=== PATIENT | female | born 1965 | race African-American/Black ===

== ENCOUNTER 2017-10-24 22:08 | Inpatient (IN) | payer MEDICARE, MEDICAID ==
[2017-10-24 22:33] LABS: #Eosinphils 0.1 thou/uL (0.0-0.7); #Lymphocytes 1.8 thou/uL (1.20-3.40); #Monocytes 0.5 thou/uL (0.11-0.59); #Neutrophils 5.9 thou/uL (1.40-6.50); %Eosinophils 0.9 % (0.0-10.0); %Lymphocytes 22.2 % (21.0-51.0); %Monocytes 5.7 % (0.0-10.0); %Neutrophils 71.1 % (42.0-75.0); Hemoglobin 13.7 g/dL (12.0-16.0); Mean Corpuscular HGB CONC 31.7 g/dL (32.0-36.0); Mean Corpuscular Hemoglobin 29.1 pg (27.0-31.0); Mean Corpuscular Volume 91.9 fl (81.0-99.0); Mean Platelet Volume 8.9 fL (7.4-10.4); Platelet Count 131 thou/uL (130-400); RBC Distribution Width 13.3 % (11.5-14.5); Red Blood Cell (RBC) Count 4.73 mill/uL (4.20-5.40); White Blood Cell (WBC) Count 8.3 thou/uL (4.8-10.8)
[2017-10-24 22:56] LABS: ALT (SGPT) 38 U/L (8-55); AST (SGOT) 49 U/L (5-34); Albumin 3.4 g/dL (3.5-5.0); Alkaline Phosphatase 127 U/L (40-150); Anion Gap 13 mmol/L (10-20); BUN (Urea Nitrogen) 16 mg/dL (9.8-20.1); Bilirubin, Total 0.5 mg/dL (0.2-1.2); Calc. Creatinine Clearance 0 mL/min (70-130); Calcium 8.7 mg/dL (7.8-10.44); Carbon Dioxide 24 mmol/L (22-29); Chloride 104 mmol/L (98-107); Estimated GFR-MDRD 77; Globulin 4.6 g/dL (2.4-3.5); Glucose 228 mg/dL (70-105); Potassium 4.2 mmol/L (3.5-5.1); Sodium 137 mmol/L (136-145)
[2017-10-24 22:59] LABS: CKMB 2.4 ng/mL (0-6.6); Troponin I 0.016 ng/mL (< 0.028)
[2017-10-24] MEDS ORDERED: Furosemide 40 MG/4 ML VIAL ONE (23:37)
--- NOTE | 2017-10-24 23:41 | RAD ---
PORTABLE AP CHEST X-RAY: 10/24/2017 HISTORY: Difficulty breathing. The patient on CPAP. COMPARISON: 09/06/2016 FINDINGS: The cardiac silhouette is magnified by projection. Pulmonary vasculature is within normal limits. L ungs are clear. There is mild increase in left perihilar interstitial densities, and to a lesser ext ent, on the right. No consolidation or pleural fluid is seen. Vascular calcification at the thoraci c aorta. No other interval change. IMPRESSION: Mildly increased perihilar interstitial densities predominantly on the left. This is nonspecific and may be attributable to mild pulmonary edema or developing infectious process. Short-term follow-up exam is recommended. POS: ITZEL
[2017-10-25 00:36] LABS: Amphetamine Not Detected (NotDetected); Barbiturates Screen Not Detected (NotDetected); Benzodiazepine Screen Not Detected (NotDetected); Cocaine Metabolite Screen Detected (NotDetected); Medtox Control Line Valid? VALID (VALID); Medtox Reader # READER 4; Methadone Not Detected (NotDetected); Methamphetamine Not Detected (NotDetected); Opiate Screen Not Detected (NotDetected); Oxycodone Screen Not Detected (NotDetected); Phencyclidine (PCP) Not Detected (NotDetected); THC/Cannabinoid Screen Not Detected (NotDetected); Tricyclic Screen Not Detected (NotDetected)
[2017-10-25] MEDS ORDERED: Albuterol Sulfate 2.5 mg/0.5 ml Neb ONE (00:48)
[2017-10-25 04:12] VITALS: BMI 33.5
[2017-10-25] MEDS ORDERED: Dextrose 50% Abboject 50 ML SYRINGE IVP PRN (10:15)
[2017-10-25] MEDS ORDERED: Dextrose 5% in Water 1,000 ML IV PRN (10:15)
[2017-10-25] MEDS: Acetaminophen 325 MG TAB PO PRN ×2 (10:53→17:37)
[2017-10-25] MEDS: traMADol HCl 50 MG TAB PO PRN ×2 (10:53→17:16)
[2017-10-25] MEDS: Insulin Regular 300 UNITS/3 ML VIAL SC PRN ×3 (13:02→22:22)
[2017-10-25] MEDS ORDERED: Furosemide 40 MG/4 ML VIAL SLOW IVP SCH (15:15)
--- NOTE | 2017-10-25 15:38 | EKG ---
Test Reason : Blood Pressure : / mmHG Vent. Rate : 097 BPM Atrial Rate : 097 BPM P-R Int : 128 ms QRS Dur : 084 ms QT Int : 378 ms P-R-T Axes : 031 051 037 degrees QTc Int : 480 ms Sinus rhythm with Premature atrial complexes Minimal voltage criteria for LVH, may be normal variant Prolonged QT Abnormal ECG Confirmed by JONATHAN KAN, JUSTICE Mccain ([id number]), online content editor WALTER NAGY ([id number]) on 10/25/2017 3:38:24 PM Referred By: Confirmed By:JUSTICE CASTILLO MD
[2017-10-25] MEDS: metFORMIN 500 MG TAB PO SCH (17:15)
[2017-10-25] MEDS: Mometasone/Formoterol 120 PUFF INHALER INH SCH (18:48)
[2017-10-25] MEDS: Gabapentin 300 MG CAP PO SCH (19:50)
[2017-10-25] MEDS: guaiFENesin ER 600 MG TAB PO SCH (19:50)
[2017-10-26] MEDS: traMADol HCl 50 MG TAB PO PRN ×4 (00:03→20:44)
--- NOTE | 2017-10-26 01:45 | HP ---
DATE OF ADMISSION: 10/25/2017 REASON AND CHIEF COMPLAINT: Shortness of breath and hypoxia. HISTORY OF PRESENT ILLNESS: Ms. Shaikh is a 52-year-old female with past medical hi story of hypertension, diabetes mellitus and COPD, came because of shortness of breath and cough. Sh ortness of breath started just an hour before she came to the hospital and got worse to the point she could not breathe. She took some breathing treatment, but still it did not improve, so EMS was call ed. EMS found the patient with chest wheezing, with O2 saturation 81%. The patient was given DuoNeb s and oxygen on the way to the hospital and saturation improved more than 90%, but patient was still having hard time breathing, so she was put on CPAP. She was given also ketamine. She received a tot al of DuoNeb treatments, Solu-Medrol [address] to hospital. In the ER, the patient wa s found to have possible CHF as well, and she received a dose of Lasix and given nebulizer treatment as well and admitted for further evaluation. Currently, the patient feels slightly better than befor e. The patient was also found to be positive for cocaine. PAST MEDICAL HISTORY: 1. Hypertension. 2. Diabetes mellitus. 3. COPD. 4. Hyperlipidemia. 5. History of left hip septic arthritis. 6. History of chronic back pain. 7. Chronic anemia. PAST SURGICAL HISTORY: Status post cholecystectomy, status post hysterectomy and status post debride ment to left hip. CURRENT MEDICATIONS: The patient is supposed to be on Tylenol p.r.n., gabapentin 300 mg 2 tablets at bedtime, Symbicort 160/4.5 two puffs b.i.d., amlodipine 10 mg daily, metformin 1000 b.i.d., Cozaar 1 00 mg daily, Lasix 20 mg daily, Nexium 40 mg daily, Celexa 20 mg daily and also on DuoNeb treatments q.i.d. ALLERGIES: IODINE. FAMILY HISTORY: Nothing of interest. SOCIAL HISTORY: The patient lives with family. No history of alcohol intake, no history of smoking. She abuses cocaine. REVIEW OF SYSTEMS: Cardiovascular: No chest pain. Has shortness of breath. Respiratory: Has coug h. No fever. Gastrointestinal: No nausea, no vomiting, no abdominal pain. Genitourinary: No dist ension. Central Nervous System: No headache, no dizziness. PHYSICAL EXAMINATION: GENERAL: The patient is alert, awake and oriented x3. VITAL SIGNS: Temperature 98, pulse 84, respirations 20, blood pressure 140/80 and O2 sat 92%. HEENT: Head is normocephalic and atraumatic. Pupils are equal and reactive. Nasopharynx is pale an d moist. NECK: Supple. No JVD. LUNGS: Breath sounds diminished bilaterally. Percussion dull bilaterally. Expiratory wheeze presen t. Rales present in both bases. HEART: S1 and S2 regular. ABDOMEN: Soft. No distention, no tenderness. Normal bowel sounds present. RECTAL: Deferred. CENTRAL NERVOUS SYSTEM: No focal deficits. LABORATORY AND X-RAY FINDINGS: CBC shows WBC 8.3, hemoglobin 14, hematocrit 43 and platelets 131. M etabolic panel: Sodium 137, potassium 4.2, chloride 104, CO2 of 25, urea nitrogen 16, creatinine 0.9 and glucose 228. CK-MB 2.4, troponin I 0.016 and BNP was 203. EKG shows normal sinus rhythm. No a cute ST-T changes. Chest x-ray showed possible mild pulmonary edema or possible developing infectiou s process. ASSESSMENT: 1. Chronic obstructive pulmonary disease, acute exacerbation. 2. Congestive heart failure, acute exacerbation, rule out myocardial infarction. 3. Cocaine abuse. 4. Hypoxia secondary to #1. 5. Hypertension. 6. Diabetes mellitus. 7. Chronic anemia. PLAN: 1. Vital signs q.4 hours. 2. Activity: As tolerated. 3. Allergies: IODINE. 4. Diet: ADA. 5. Lasix 40 IVP daily. 6. DuoNebs q.i.d. 7. Solu-Medrol 20 IVP q.6 hours. 8. Levaquin 750 daily IV piggyback. 9. Accu-Chek a.c. and at bedtime. 10. Sliding scale mild with regular insulin. 11. Continue home medication. 12. Echocardiogram.
[2017-10-26 05:28] LABS: Anion Gap 14 mmol/L (10-20); BUN (Urea Nitrogen) 24 mg/dL (9.8-20.1); Calc. Creatinine Clearance 80 mL/min (70-130); Calcium 9.6 mg/dL (7.8-10.44); Carbon Dioxide 25 mmol/L (22-29); Chloride 94 mmol/L (98-107); Estimated GFR-MDRD 56; Glucose 258 mg/dL (70-105); Potassium 4.9 mmol/L (3.5-5.1); Sodium 128 mmol/L (136-145)
[2017-10-26] MEDS: Insulin Regular 300 UNITS/3 ML VIAL SC PRN ×2 (06:02→15:19)
[2017-10-26] MEDS: Mometasone/Formoterol 120 PUFF INHALER INH SCH ×2 (06:36→18:28)
[2017-10-26] MEDS: Citalopram 20 MG TAB PO SCH (08:03)
[2017-10-26] MEDS: guaiFENesin ER 600 MG TAB PO SCH ×2 (08:03→20:44)
[2017-10-26] MEDS: metFORMIN 500 MG TAB PO SCH ×2 (08:03→17:34)
[2017-10-26] MEDS: Amlodipine 10 MG TAB PO SCH (08:04)
[2017-10-26] MEDS: Losartan 25 MG TAB PO SCH (08:05)
[2017-10-26] MEDS ORDERED: Furosemide 20 MG TAB PO SCH (09:00)
[2017-10-26] MEDS ORDERED: Furosemide 40 MG/4 ML VIAL SLOW IVP SCH (09:00)
[2017-10-26] MEDS: Gabapentin 300 MG CAP PO SCH (20:44)
[2017-10-26] MEDS: Guaifenesin DM 100-10/5 ML UDCUP PO PRN (22:10)
[2017-10-27] MEDS: Guaifenesin DM 100-10/5 ML UDCUP PO PRN ×4 (03:13→20:58)
[2017-10-27] MEDS: traMADol HCl 50 MG TAB PO PRN (05:17)
[2017-10-27] MEDS: Insulin Regular 300 UNITS/3 ML VIAL SC PRN ×4 (05:18→21:01)
[2017-10-27] MEDS: Mometasone/Formoterol 120 PUFF INHALER INH SCH ×2 (07:14→18:26)
[2017-10-27] MEDS: metFORMIN 500 MG TAB PO SCH ×2 (08:10→16:48)
[2017-10-27] MEDS: Amlodipine 10 MG TAB PO SCH (08:11)
[2017-10-27] MEDS: guaiFENesin ER 600 MG TAB PO SCH ×2 (08:11→20:58)
[2017-10-27] MEDS: Furosemide 20 MG TAB PO SCH (08:11)
[2017-10-27] MEDS: Losartan 25 MG TAB PO SCH (08:11)
[2017-10-27] MEDS: Citalopram 20 MG TAB PO SCH (08:11)
--- NOTE | 2017-10-27 14:35 | PQF ---
CLINICAL DOCUMENTATION IMPROVEMENT CLARIFICATION FORM: ICD-10 Updated PLEASE DO AN ADDENDUM TO THE PROGRESS NOTE WITH ANY DOCUMENTATION UPDATES OR ADDITIONS AND CARRY THROUGH TO DC SUMMARY. THANK YOU. DATE: 10/27/17 ATTN: DR. ARNDT Please exercise your independent, professional judgment in responding to the clarification form. Clinical indicators are provided on the bottom of this form for your review Please check appropriate box(s): [ ] Acute Respiratory Failure: [ ] with Hypoxia[ ] with Hypercapnia [ y] Acute On Chronic Respiratory Failure: [ y] with Hypoxia [ ] with Hypercapnia [ ] Acute Respiratory Failure due to: (etiology) [ ] Acute Respiratory Insufficiency following (if applicable): [ ] trauma [ ] surgery [ ] Chronic Respiratory Failure only [ ] with Hypoxia [ ] with Hypercapnia [ ] Hypoxia [ ] Other diagnosis [ ] Unable to determine In addition, please specify: Present on Admission (POA): [ ] Yes [ ] No [ ] Unable to determine For continuity of documentation, please document condition throughout progress notes and discharge summary. Thank You. CLINICAL INDICATORS - SIGNS / SYMPTOMS / LABS H&P: "SHORTNESS OF BREATH STARTED JUST AN HOUR BEFORE SHE CAME TO THE HOSPITAL AND GOT WORSE TO THE POINT SHE COULD NOT BREATHE." "EMS FOUND THE PATIENT WITH CHEST WHEEZING AND O2 SATURATION 81%" RR 36 RISKS: COPD EXACERBATION TREATMENT: NEB TREATMENTS (ER-PRESENT) SOLUMEDROL (ENROUTE PER EMS- PRESENT) [facility] (10/25-PRESENT) CPAP (This form is maintained as a part of the permanent medical record) 2014 [id number]. All Rights Reserved RAIZA [email or web address] Office: [phone] [facility]
[2017-10-27] MEDS: Gabapentin 300 MG CAP PO SCH ×3 (20:58→21:00)
[2017-10-28] MEDS: Insulin Regular 300 UNITS/3 ML VIAL SC PRN ×3 (06:25→16:55)
[2017-10-28] MEDS: Mometasone/Formoterol 120 PUFF INHALER INH SCH (06:52)
[2017-10-28] MEDS: Citalopram 20 MG TAB PO SCH (08:10)
[2017-10-28] MEDS: guaiFENesin ER 600 MG TAB PO SCH (08:10)
[2017-10-28] MEDS: metFORMIN 500 MG TAB PO SCH ×2 (08:10→16:54)
[2017-10-28] MEDS: Guaifenesin DM 100-10/5 ML UDCUP PO PRN (08:10)
[2017-10-28] MEDS: Amlodipine 10 MG TAB PO SCH (08:11)
[2017-10-28] MEDS: Furosemide 20 MG TAB PO SCH (08:11)
[2017-10-28] MEDS: Losartan 25 MG TAB PO SCH (08:11)
[2017-10-28 15:59] VITALS: BP 130/80; TEMP 97.8
[2017-10-29] MEDS ORDERED: predniSONE 20 MG TAB PO SCH (09:00)
--- NOTE | 2017-10-29 13:18 | DIS ---
DATE OF ADMISSION: 10/25/2017 DATE OF DISCHARGE: 10/28/2017 ADMITTING DIAGNOSES 1. Chronic obstructive pulmonary disease with acute exacerbation. 2. Congestive heart failure, acute exacerbation, rule out myocardial infarction. 3. Cocaine abuse. 4. Hypoxia secondary to #1. 5. Hypertension. 6. Diabetes mellitus. FINAL DIAGNOSES: 1. Chronic obstructive pulmonary disease exacerbation, improved. 2. Congestive heart failure exacerbation, improved. 3. Cocaine abuse. 4. Hypoxia, improved. 5. Hypertension. 6. Diabetes mellitus. 7. Chronic anemia. BRIEF SUMMARY OF HOSPITAL COURSE: Ms. Shaikh is a 52-year-old -Stateless female admitted because of shortness of breath. The patient was found to be in CHF exacerbation as well as COPD. The patient initially on CPAP, but later on changed to face mask and nasal cannula. The patient was continued on Solu- Medrol and Lasix IV. In the next couple of days, her shortness of breath improved and wheezing resolved. An echocardiogram was done, showed normal LV function with ejection fraction of 55%, left atrial dilatation, some mild diastolic dysfunction, but in view of improvement, the patient is being discharged home. At the time of discharge, she was stable. Her vital signs stable. Lungs clear. Heart sounds regular. Abdomen is soft, nontender. Bowel sounds present. DISCHARGE MEDICATIONS: Include amlodipine 10 mg daily, losartan 100 mg daily, Celexa 20 mg daily, Symbicort 160/4.5 two puffs b.i.d., metformin 1000 b.i.d., albuterol inhaler two puffs q.i.d., Lasix 20 mg daily, Nexium 40 mg daily, gabapentin 300 mg 1 capsule at bedtime, prednisone in tapering doses, DuoNebs q.i.d., Mucinex 600 b.i.d. for 10 days. FOLLOWUP: The patient will come for followup in 2 weeks. LUDA
== END 2017-10-28 18:15 | disposition home or self-care (01) | DRG 291 ==
LOC: ERS 22:08 → SURG A 10-25 01:20
PROVIDERS: ADMIT Internal Medicine; ATTEND Internal Medicine
PROC: 5A09357 Assistance with Respiratory Ventilation, Less than 24 Consecutive Hours, Continuous Positive Airway Pressure (ICD-10-PCS; principal; 2017-10-25)
DX: I11.0 Hypertensive heart disease with heart failure (principal); J96.01 Acute respiratory failure with hypoxia; J44.1 Chronic obstructive pulmonary disease with (acute) exacerbation; D64.9 Anemia, unspecified; E11.9 Type 2 diabetes mellitus without complications; E78.5 Hyperlipidemia, unspecified; I50.9 Heart failure, unspecified; F14.10 Cocaine abuse, uncomplicated; F17.210 Nicotine dependence, cigarettes, uncomplicated
CPT/HCPCS: 36415; 36416; 71045; 80048; 80053; 80306; 82553; 83880; 84484; 85025; 93005; 93306; 94640; 94760; 96374; J1815; J1940; J1956; J2920; J7611; J7620

== ENCOUNTER 2017-11-07 19:49 | Emergency (ER) | payer MEDICARE, OTHER ==
[~2017-11-07 19:49] MED LIST: EPINEPHrine 1 MG/10 ML Abboject SYRINGE ONE; Sodium Bicarb 50 MEQ/50 ML Abboject 8.4% SYRINGE ONE
[2017-11-07] MEDS ORDERED: EPINEPHrine 1 MG, Admixture Fee 1 EACH in Dextrose 5% in Water 250 ML IVPB SCH ×3 (20:00)
[2017-11-07 20:14] LABS: Hemoglobin 11.8 g/dL (12.0-16.0); Mean Corpuscular HGB CONC 29.6 g/dL (32.0-36.0); Mean Corpuscular Hemoglobin 29.4 pg (27.0-31.0); Mean Corpuscular Volume 99.2 fl (81.0-99.0); RBC Distribution Width 13.4 % (11.5-14.5); Red Blood Cell (RBC) Count 4.01 mill/uL (4.20-5.40); White Blood Cell (WBC) Count 12.8 thou/uL (4.8-10.8)
[2017-11-07 20:22] LABS: Bicarbonate (HCO3v) 21.3 mmol/L (1.0-85.0); CO2 Tension (PvCO2) 99.5 mmHg (41.0-51.0); Calcium, Ionized 1.08 mmol/L (1.12-1.32); Hemoglobin - Calc 13.8 g/dL (12.0-18.0); Lactate 8.01 mmol/L (0.50-2.20); O2 Tension (PvO2) 59.4 mmHg (35.0-45.0); Potassium 5.2 mmol/L (3.4-4.7); T. Carbon Dioxide 24.4 mmol/L (1.0-85.0); pH (Venous) 6.939 (7.35-7.45); vO2 Saturation-calc 69.1 % (94-98)
[2017-11-07 20:32] LABS: #Basophils 0.1 thou/uL (0.0-0.2); #Eosinphils 0.1 thou/uL (0.0-0.7); #Monocytes 0.8 thou/uL (0.11-0.59); #Neutrophils 5.8 thou/uL (1.40-6.50); %Basophils 1.1 % (0.0-1.0); %Eosinophils 0.8 % (0.0-10.0); %Lymphocytes 46.5 % (21.0-51.0); %Monocytes 6.5 % (0.0-10.0); %Neutrophils 45.1 % (42.0-75.0); Hypochromia SLIGHT = 6-15 cells (100X) (0-5/hpf); MDiff Complete? YES; Mean Platelet Volume 10.5 fL (7.4-10.4); PLT Morphology Comment Appears Decreased; Platelet Count 88 thou/uL (130-400)
[2017-11-07 20:33] LABS: ALT (SGPT) 57 U/L (8-55); AST (SGOT) 72 U/L (5-34); Albumin 2.5 g/dL (3.5-5.0); Alkaline Phosphatase 109 U/L (40-150); Anion Gap 25 mmol/L (10-20); BUN (Urea Nitrogen) 15 mg/dL (9.8-20.1); Bilirubin, Total 0.3 mg/dL (0.2-1.2); CK (CPK) 123 U/L (29-168); Calc. Creatinine Clearance 0 mL/min (70-130); Calcium 8.2 mg/dL (7.8-10.44); Carbon Dioxide 14 mmol/L (22-29); Chloride 106 mmol/L (98-107); Estimated GFR-MDRD 38; Globulin 3.1 g/dL (2.4-3.5); Glucose 411 mg/dL (70-105); Lipase 81 U/L (8-78); Magnesium 2.5 mg/dL (1.6-2.6); Potassium 4.5 mmol/L (3.5-5.1); Protein, Total 5.6 g/dL (6.0-8.3); Sodium 140 mmol/L (136-145)
--- NOTE | 2017-11-07 20:35 | RAD ---
SUPINE FRONTAL CHEST RADIOGRAPH 11/07/17 COMPARISON: 10/24/17 HISTORY: Dyspnea. FINDINGS: There is lack of lung markings in the costophrenic angle on the right suggesting a small pneumothorax in the right lung base. In addition, there is a lack of lung markings in the left costophrenic angle suggesting a very small pneumothorax in the left lung base. There is an endotracheal tube projecting over the tracheal air column above the level of the [place]. There is dense air space disease involvi ng a large portion of the right upper lobe. There is nonspecific interstitial and mild alveolar opaci ty in the left lung apex. Small caliber catheter tubing overlies bilateral lung apices which may signify small volume chest tub es. IMPRESSION: Small bilateral bibasilar pneumothoraces, right larger than left. Nonspecific air space disease noted in bilateral upper lobes, right greater than left. This may signify contusion, aspiration or infecti ous pneumonitis. Results called to Dr. Sorensen, 8:25 p.m., 11/07/17. Code CR POS: ITZEL
[2017-11-07 20:36] LABS: CKMB 3.2 ng/mL (0-6.6)
[2017-11-07 20:41] LABS: Troponin I 0.045 ng/mL (< 0.028)
== END 2017-11-07 20:32 ==
LOC: ERS 19:49
DX: I46.9 Cardiac arrest, cause unspecified (principal); I50.9 Heart failure, unspecified; E11.9 Type 2 diabetes mellitus without complications; I11.0 Hypertensive heart disease with heart failure; J44.9 Chronic obstructive pulmonary disease, unspecified; F17.210 Nicotine dependence, cigarettes, uncomplicated
CPT/HCPCS: 31500; 32554; 51702; 71045; 80053; 82330; 82550; 82553; 82803; 83605; 83690; 83735; 84484; 85025; 86850; 86900; 86901; 92950; 93005; 96374; 96375; 96376; J0171; J7070